=== PATIENT | female | born 1945 | race Caucasian/White ===

== ENCOUNTER → 2018-07-11 10:09 | Outpatient (CLI) | payer MEDICARE, OTHER, SELFPAY ==
--- NOTE | 2018-07-11 10:27 | XR_ITS ---
XR DEXA axial skeleton HISTORY: ITS.REASON: OSTEOPOROSIS ORDERING PHYSICIAN: Kofi Kong PATIENT AGE: 73 years COMPARISON: 03/30/2016 FINDINGS: The BMD measured at the Total Right femoral neck is 0.718 g/cm squared with a T score of -2.3. This is considered Osteopenic according to the World Health Organization criteria. Fracture risk is Moderate. Treatment is advised. The L1-L4 density is a T score of -0.9. The L-spine density has decreased by 10% and the hip density has increased by 1% compared to 03/30/2016 IMPRESSION: Osteopenia with moderate fracture risk. Recommend treatment. Suggest follow-up exam June 2020
== END ==
PROVIDERS: Family Provider Internal Medicine; PCP Internal Medicine; Visit Provider Internal Medicine
DX: M81.0 Age-related osteoporosis without current pathological fracture (principal)
CPT/HCPCS: 77080

== ENCOUNTER → 2019-11-06 10:09 | Outpatient (CLI) | payer MEDICARE, OTHER, SELFPAY ==
--- NOTE | 2019-11-06 10:17 | XR_ITS ---
PROCEDURE: XR SHOULDER RT MIN 2V CLINICAL INDICATION: RT SHOULDER PAIN COMPARISON: No exams were available for comparison FINDINGS: There are moderate osteoarthritic changes of the glenohumeral joint with bony spurring of the inferior aspect of the humeral head. Minor osteoarthritic changes are present at the acromioclavicular joint. IMPRESSION: Osteoarthritic change Dictated by: Mo Meyer MD 11/06/2019 11:18 Electronically signed by Mo Meyer MD in [place] 11/06/2019 11:18
== END ==
PROVIDERS: PCP Internal Medicine; Visit Provider Internal Medicine
DX: M25.511 Pain in right shoulder (principal)
CPT/HCPCS: 73030

== ENCOUNTER → 2021-09-12 13:00 | Outpatient (CLI) | payer MEDICARE, OTHER, SELFPAY ==
[2021-09-12 13:55] LABS: Basophils # 0.2 K/mm3 (0-0.2); Basophils % 1.6 % (0.1-2.0); Eosinophils # 0.2 K/mm3 (0.0-0.4); Eosinophils % 2.2 % (0.1-12.0); Hematocrit 37.2 % (37.0-47.0); Lymphocytes % 20.3 % (10-50); Mean Corpuscular HGB Conc 32.3 g/dL (31.8-35.4); Mean Corpuscular Hemoglobin 26.3 pg (27.0-31.2); Mean Corpuscular Volume 81.4 fl (81-99); Mean Platelet Volume 9.6 fl (7.4-10.4); Monocytes # 0.4 K/mm3 (0.1-1.0); Monocytes % 4.3 % (1.7-9.3); Neutrophils # 7.2 K/mm3 (1.8-7.8); Neutrophils % 71.6 % (37.0-80.0); Platelet Count 287 K/mm3 (142-424); Red Blood Count 4.58 M/mm3 (4.20-5.40); Red Cell Distribution Width 14.1 % (11.5-17.5); White Blood Count 10.1 K/mm3 (4.8-10.8)
[2021-09-12 15:07] LABS: Alanine Aminotransferase 12 U/L (12-78); Albumin Level 4.2 g/dl (3.5-5.0); Albumin/Globulin Ratio 1.8 (1.1-1.8); Alkaline Phosphatase 86 U/L (38-126); Anion Gap 12.3 mEq/L (5-15); Aspartate Amino Transferase 28 U/L (14-36); Bilirubin,Total 0.7 mg/dl (0.2-1.3); Blood Urea Nitrogen 15 mg/dl (7-17); Calcium 9.4 mg/dl (8.4-10.2); Carbon Dioxide 33 mmol/L (22.0-30.0); Chloride 98 mmol/L (98-107); Chol/HDL Ratio 3.7 (1-3.5); Cholesterol 130 mg/dl (140-200); Estimated Glomerular Filt Rate 61 ml/min (>60); GFR (African American) 74 ML/MIN (>60); Globulin 2.3 g/dL (1.3-3.2); Glucose 106 mg/dl (74-100); HDL Cholesterol 35 mg/dl (40-60); Potassium 4.3 mmoL/L (3.5-5.1); Sodium 139 mmol/L (136-145); Total Protein,Serum 6.5 g/dl (6.3-8.2); Triglycerides 184 mg/dl (30-150); VLDL Cholesterol 37 mg/dL (0-40)
[2021-09-12 15:18] LABS: Direct LDL Cholesterol 49.17 mg/dL (100-129)
[2021-09-12 15:23] LABS: Hemoglobin A1C 6.8 % (4.0-6.0)
== END ==
PROVIDERS: Visit Provider Internal Medicine
DX: I25.10 Atherosclerotic heart disease of native coronary artery without angina pectoris (principal); I10 Essential (primary) hypertension; E11.59 Type 2 diabetes mellitus with other circulatory complications; E78.5 Hyperlipidemia, unspecified; Z95.1 Presence of aortocoronary bypass graft; Z79.84 Long term (current) use of oral hypoglycemic drugs
CPT/HCPCS: 80053; 80061; 82043; 83036; 85025

== ENCOUNTER → 2022-03-27 11:10 | Outpatient (CLI) | payer MEDICARE, OTHER, SELFPAY ==
[2022-03-27 13:51] LABS: Hemoglobin A1C 7.1 % (4.0-6.0)
[2022-03-27 14:18] LABS: Alanine Aminotransferase 17 U/L (12-78); Albumin Level 4.1 g/dl (3.5-5.0); Albumin/Globulin Ratio 1.7 (1.1-1.8); Alkaline Phosphatase 87 U/L (38-126); Anion Gap 10.6 mEq/L (5-15); Aspartate Amino Transferase 27 U/L (14-36); Bilirubin,Total 0.5 mg/dl (0.2-1.3); Blood Urea Nitrogen 19 mg/dl (7-17); Calcium 9.5 mg/dl (8.4-10.2); Carbon Dioxide 33 mmol/L (22.0-30.0); Chloride 102 mmol/L (98-107); Chol/HDL Ratio 3.9 (1-3.5); Cholesterol 161 mg/dl (140-200); Estimated Glomerular Filt Rate 70 ml/min (>60); GFR (African American) 84 ML/MIN (>60); Globulin 2.4 g/dL (1.3-3.2); Glucose 116 mg/dl (74-100); HDL Cholesterol 41 mg/dl (40-60); Potassium 4.6 mmoL/L (3.5-5.1); Sodium 141 mmol/L (136-145); Total Protein,Serum 6.5 g/dl (6.3-8.2); Triglycerides 219 mg/dl (30-150); VLDL Cholesterol 44 mg/dL (0-40)
[2022-03-27 14:29] LABS: Direct LDL Cholesterol 52.22 mg/dL (100-129)
== END ==
PROVIDERS: PCP Internal Medicine; Visit Provider Internal Medicine
DX: E11.59 Type 2 diabetes mellitus with other circulatory complications (principal); I10 Essential (primary) hypertension; E78.5 Hyperlipidemia, unspecified; M81.0 Age-related osteoporosis without current pathological fracture; Z95.1 Presence of aortocoronary bypass graft; Z79.84 Long term (current) use of oral hypoglycemic drugs
CPT/HCPCS: 80053; 80061; 83036

== ENCOUNTER → 2022-10-08 12:19 | Outpatient (CLI) | payer MEDICARE, OTHER, SELFPAY ==
[2022-10-08 13:48] LABS: Basophils # 0.1 K/mm3 (0-0.2); Basophils % 0.9 % (0.1-2.0); Eosinophils # 0.2 K/mm3 (0.0-0.4); Eosinophils % 2.5 % (0.1-12.0); Hematocrit 37.3 % (37.0-47.0); Hemoglobin 12.6 g/dL (12.2-16.2); Lymphocytes # 2.1 K/mm3 (0.7-4.5); Lymphocytes % 22.2 % (10-50); Mean Corpuscular HGB Conc 33.7 g/dL (31.8-35.4); Mean Corpuscular Volume 77.2 fl (81-99); Mean Platelet Volume 9.8 fl (7.4-10.4); Monocytes # 0.4 K/mm3 (0.1-1.0); Monocytes % 4.7 % (1.7-9.3); Neutrophils # 6.6 K/mm3 (1.8-7.8); Neutrophils % 69.7 % (37.0-80.0); Platelet Count 327 K/mm3 (142-424); Red Blood Count 4.84 M/mm3 (4.20-5.40); Red Cell Distribution Width 13.6 % (11.5-17.5); White Blood Count 9.5 K/mm3 (4.8-10.8)
[2022-10-08 14:07] LABS: Hemoglobin A1C 7.7 % (4.0-6.0)
[2022-10-08 15:09] LABS: Microalbumin/Creatinine Ratio 5.9
[2022-10-08 15:15] LABS: Creatinine,Urine Random 164 mg/dL (Not Estab.)
[2022-10-08 16:13] LABS: Alanine Aminotransferase 25 U/L (12-78); Albumin Level 4.3 g/dl (3.5-5.0); Albumin/Globulin Ratio 1.8 (1.1-1.8); Alkaline Phosphatase 139 U/L (38-126); Anion Gap 15.4 mEq/L (5-15); Aspartate Amino Transferase 26 U/L (14-36); Bilirubin,Total 0.5 mg/dl (0.2-1.3); Blood Urea Nitrogen 20 mg/dl (7-17); Calcium 9.8 mg/dl (8.4-10.2); Carbon Dioxide 29 mmol/L (22.0-30.0); Chloride 100 mmol/L (98-107); Chol/HDL Ratio 3.8 (1-3.5); Cholesterol 138 mg/dl (140-200); Estimated Glomerular Filt Rate 70 ml/min (>60); GFR (African American) 84 ML/MIN (>60); Globulin 2.4 g/dL (1.3-3.2); Glucose 153 mg/dl (74-100); HDL Cholesterol 36 mg/dl (40-60); Potassium 4.4 mmoL/L (3.5-5.1); Sodium 140 mmol/L (136-145); Total Protein,Serum 6.7 g/dl (6.3-8.2); Triglycerides 207 mg/dl (30-150); VLDL Cholesterol 41 mg/dL (0-40)
[2022-10-08 16:24] LABS: Direct LDL Cholesterol 51.43 mg/dL (100-129)
== END ==
PROVIDERS: PCP Internal Medicine; Visit Provider Internal Medicine
DX: I25.10 Atherosclerotic heart disease of native coronary artery without angina pectoris (principal); I10 Essential (primary) hypertension; E11.59 Type 2 diabetes mellitus with other circulatory complications; E78.5 Hyperlipidemia, unspecified; Z79.84 Long term (current) use of oral hypoglycemic drugs
CPT/HCPCS: 80053; 80061; 82043; 82570; 83036; 85025

== ENCOUNTER → 2023-04-10 12:49 | Outpatient (CLI) | payer MEDICARE, OTHER, SELFPAY ==
[2023-04-10 13:52] LABS: Alanine Aminotransferase 21 U/L (12-78); Albumin Level 4.1 g/dl (3.5-5.0); Albumin/Globulin Ratio 1.6 (1.1-1.8); Alkaline Phosphatase 91 U/L (38-126); Anion Gap 14.3 mEq/L (5-15); Aspartate Amino Transferase 30 U/L (14-36); Bilirubin,Total 0.9 mg/dl (0.2-1.3); Blood Urea Nitrogen 19 mg/dl (7-17); Calcium 9.3 mg/dl (8.4-10.2); Carbon Dioxide 30 mmol/L (22.0-30.0); Chloride 101 mmol/L (98-107); Chol/HDL Ratio 3.7 (1-3.5); Cholesterol 172 mg/dl (140-200); Estimated Glomerular Filt Rate 69 ml/min (>60); GFR (African American) 84 ML/MIN (>60); Globulin 2.5 g/dL (1.3-3.2); Glucose 103 mg/dl (74-100); HDL Cholesterol 46 mg/dl (40-60); Potassium 4.3 mmoL/L (3.5-5.1); Sodium 141 mmol/L (136-145); Total Protein,Serum 6.6 g/dl (6.3-8.2); Triglycerides 242 mg/dl (30-150); VLDL Cholesterol 48 mg/dL (0-40)
[2023-04-10 14:03] LABS: Direct LDL Cholesterol 62.74 mg/dL (100-129)
[2023-04-10 14:06] LABS: Hemoglobin A1C 7.4 % (4.0-6.0)
== END ==
PROVIDERS: PCP Internal Medicine; Visit Provider Internal Medicine
DX: E11.59 Type 2 diabetes mellitus with other circulatory complications (principal); I25.10 Atherosclerotic heart disease of native coronary artery without angina pectoris; I10 Essential (primary) hypertension; E78.5 Hyperlipidemia, unspecified
CPT/HCPCS: 80053; 80061; 83036

== ENCOUNTER 2023-07-22 17:22 | Emergency (ER) | payer MEDICARE, OTHER, SELFPAY ==
[2023-07-22 17:45] VITALS: BP 154/67; PULSE 98; RESP 18; TEMP 36.7; O2SAT 100; BMI 20.2
[2023-07-22 18:01] VITALS: BMI 20.2
[2023-07-22 18:06] LABS: Coronavirus 19, PCR Not Detected (NotDetected); Influenza A, PCR Not Detected (NotDetected); Influenza B, PCR Not Detected (NotDetected); Microscopic, Urine URINE MICROSCOPIC (MICROSCOPIC)
[2023-07-22 18:10] LABS: Basophils # 0.1 K/mm3 (0-0.2); Basophils % 0.4 % (0.1-2.0); Chloride 96 mmol/L (98-107); Eosinophils % 0.4 % (0.1-12.0); Hematocrit 45.7 % (37.0-47.0); Hemoglobin 14.6 g/dL (12.2-16.2); Lymphocytes % 8.2 % (10-50); Mean Corpuscular Hemoglobin 25.6 pg (27.0-31.2); Mean Corpuscular Volume 79.9 fl (81-99); Mean Platelet Volume 9.1 fl (7.4-10.4); Monocytes # 0.4 K/mm3 (0.1-1.0); Monocytes % 3.6 % (1.7-9.3); Neutrophils # 10.6 K/mm3 (1.8-7.8); Neutrophils % 87.4 % (37.0-80.0); Platelet Count 331 K/mm3 (142-424); Red Blood Count 5.71 M/mm3 (4.20-5.40); Red Cell Distribution Width 13.6 % (11.5-17.5); White Blood Count 12.1 K/mm3 (4.8-10.8)
[2023-07-22 18:11] LABS: Appearance,Urine CLEAR (Clear); Bilirubin,Urine Negative (Negative); Blood, Urine Negative (Negative); Color,Urine YELLOW (Yellow); Glucose,Urine (UA) Negative (Negative); Ketones,Urine 2+ (Negative); Leukocyte Esterase,Urine Negative (Negative); Nitrate,Urine Negative (Negative); PH,Urine 5.5 (5.0-8.5); Potassium 3.4 mmoL/L (3.5-5.1); Protein,Urine 1+ (Negative); Sodium 139 mmol/L (136-145); Specific Gravity, Urine >= 1.030 (1.005-1.030); Urobilinogen,Urine 0.2 EU/dl (0.2)
[2023-07-22 18:13] LABS: Alanine Aminotransferase 35 U/L (12-78); Alkaline Phosphatase 104 U/L (38-126); Anion Gap 18.4 mEq/L (5-15); Aspartate Amino Transferase 35 U/L (14-36); Bilirubin,Total 0.8 mg/dl (0.2-1.3); Blood Urea Nitrogen 20 mg/dl (7-17); Carbon Dioxide 28 mmol/L (22.0-30.0); Creatinine Clearance Estimated 39 mL/min (50-200); Estimated Glomerular Filt Rate 61 ml/min (>60); GFR (African American) 73 ML/MIN (>60)
[2023-07-22 18:14] LABS: Albumin Level 4.4 g/dl (3.5-5.0); Albumin/Globulin Ratio 1.2 (1.1-1.8); Calcium 9.5 mg/dl (8.4-10.2); Globulin 3.8 g/dL (1.3-3.2); Glucose 186 mg/dl (74-100); Total Protein,Serum 8.2 g/dl (6.3-8.2)
[2023-07-22 18:16] LABS: MANUAL DIFFERENTIAL MANUAL DIFFERENTIAL (MANUAL DIFF)
[2023-07-22 18:24] LABS: Bacteria,Urine Trace /lpf; RBC,Urine Occasional #/hpf (0-3)
--- NOTE | 2023-07-22 18:41 | PC.NURSE ---
LAB AND RESP AWARE OF NEW ORDERS
--- NOTE | 2023-07-22 18:41 | HMH.EDGENADL ---
Discharge Plan Disposition Patient Disposition: Home, Self-Care Condition: Good Prescriptions Prescriptions: New doxycycline hyclate 100 mg capsule 100 mg PO BID 14 Days Qty: 28 0RF ondansetron 4 mg tablet,disintegrating 4 mg PO Q8H PRN (Reason: nausea and vomiting) 4 Days Qty: 12 0RF No Action metoprolol tartrate 50 mg tablet 50 mg PO BID simvastatin 80 mg tablet 80 mg PO DAILY losartan 100 mg tablet 100 mg PO DAILY glipizide 5 mg tablet extended release 24hr 5 mg PO DAILY hydrochlorothiazide 12.5 mg capsule 12.5 mg PO DAILY tramadol 50 mg tablet 50 mg PO Q6H PRN aspirin 325 mg tablet 325 mg PO DAILY alendronate 70 mg tablet 70 mg PO QWEEK calcium carbonate [Calcium 600] 600 mg calcium (1,500 mg) tablet 600 mg PO DAILY omeprazole 20 mg capsule,delayed release(DR/EC) 20 mg PO DAILY Referrals Follow up/Referrals: Kofi Kong MD [Primary Care Provider] - See instructions Activity Restrictions/Add. Instructions Additional Instructions/Restrictions: You were evaluated in the emergency department today. At this time, you are dehydrated and have a pneumonia. 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 Ensure that you are hydrating and drinking plenty of fluids at home. If you are not able to eat and drink at home, please come back to the emergency department. If you have continued significant vomiting and diarrhea and are having trouble keeping down your antibiotics, return to the emergency department. Please come back for any new or worsening symptoms. Follow-up with your primary care provider over the next 3 days. Clinical Impressions Clinical Impression: Lingular pneumonia, Acute dehydration Instructions Patient Instructions: DI for Pneumonia -- Adult, DI for Diarrhea and Traveler's Diarrhea -- Adult, DI for Nausea -- Adult Discharge ED Provider: Virgen Weiss General Adult HPI General Chief complaint: Nausea/Vomiting/Diarrhea Stated complaint: vomiting, diarrhea Time Seen by Provider: 07/22/23 18:02 Mode of Arrival: Ambulatory Limitations: No Limitations Description of Symptoms (Recalled from ER Triage Doc. by RN): c/o achy all over for 3 days, n/v since last night. History of Present Illness HPI narrative: This patient is a 78-year-old female with a history of hypertension, hyperlipidemia, diabetes, and GERD who states that for the last 3 days she has felt achy all over, and then she started having nausea and vomiting last night. Emesis is nonbloody nonbilious, and diarrhea is nonbloody. She denies any specific abdominal pain associated with this. She has been able to take sips of water, but she is not able to eat because it comes right back up. No dysuria or other concerns right now. Related Data Home Medications Medication Instructions Recorded Confirmed alendronate 70 mg tablet 70 mg PO QWEEK 12/01/19 12/01/19 aspirin 325 mg tablet 325 mg PO DAILY 12/01/19 12/01/19 calcium carbonate 600 mg calcium 600 mg PO DAILY 12/01/19 12/01/19 (1,500 mg) tablet (Calcium) glipizide 5 mg tablet, extended 5 mg PO DAILY 12/01/19 12/01/19 release 24 hr hydrochlorothiazide 12.5 mg capsule 12.5 mg PO DAILY 12/01/19 12/01/19 losartan 100 mg tablet 100 mg PO DAILY 12/01/19 12/01/19 metoprolol tartrate 50 mg tablet 50 mg PO BID 12/01/19 12/01/19 omeprazole 20 mg capsule,delayed 20 mg PO DAILY 12/01/19 12/01/19 release simvastatin 80 mg tablet 80 mg PO DAILY 12/01/19 12/01/19 tramadol 50 mg tablet 50 mg PO Q6H PRN 12/01/19 12/01/19 Previous Rx's Medication Instructions Recorded doxycycline hyclate 100 mg capsule 100 mg PO BID 14 days #28 caps 07/22/23 ondansetron 4 mg disintegrating 4 mg PO Q8H PRN nausea and 07/22/23 tablet vomiting 4 days #12 tabs Allergies Allergy/AdvReac Type Severity Reaction Status Date / Time Diazepam Allergy Unknown Uncoded 12/01/19
--- NOTE | 2023-07-22 18:43 | XR_ITS ---
PROCEDURE INFORMATION: Exam: XR Chest Exam date and time: 07/22/2023 7:31 PM Age: 78 years old Clinical indication: Other: Body aches and chills; Prior surgery; Surgery date: 6+ months; Surgery type: Open heart; Additional info: Body aches, chills TECHNIQUE: Imaging protocol: Radiologic exam of the chest. Views: 1 view. COMPARISON: CR XR SHOULDER RT MIN 2V 11/06/2019 10:18 AM FINDINGS: Lungs: There is moderate left lower lobe consolidative atelectasis. Right lung appears clear. Pleural spaces: Unremarkable. No pleural effusion. No pneumothorax. Heart/Mediastinum: Unremarkable. No cardiomegaly. Bones/joints: Significant partially visualized lumbar scoliosis. [id number] multilevel degenerative disc changes. Old post sternotomy changes. IMPRESSION: Moderate left lower lobe consolidative atelectasis concerning for pneumonia.
--- NOTE | 2023-07-22 18:43 | CT_ITS ---
PROCEDURE INFORMATION: Exam: CT Abdomen And Pelvis With Contrast Exam date and time: 07/22/2023 7:36 PM Age: 78 years old Clinical indication: Other: N/v/d dehydration TECHNIQUE: Imaging protocol: Computed tomography of the abdomen and pelvis with contrast. Radiation optimization: All CT scans at this facility use at least one of these dose optimization techniques: automated exposure control; mA and/or kV adjustment per patient size (includes targeted exams where dose is matched to clinical indication); or iterative reconstruction. Contrast material: ISOVUE; Contrast volume: 75 ml; Contrast route: IV; REPORTING DATA: Count of CT and Cardiac NM exams in prior 12 months: This patient has received 0 known CTs and 0 known cardiac nuclear medicine studies in the 12 months prior to the current study. COMPARISON: CR XR CHEST PORTABLE 07/22/2023 7:31 PM FINDINGS: Lungs: There is dense focal consolidation in the visualized portion of the lingula. Lower lungs are otherwise clear. Liver: Normal. No mass. Gallbladder and bile ducts: Normal. No calcified stones. No ductal dilation. Pancreas: Normal. No ductal dilation. Spleen: Normal. No splenomegaly. Adrenal glands: Normal. No mass. Kidneys and ureters: Normal. No hydronephrosis. Stomach and bowel: Moderate-sized sliding-type hiatal hernia containing the proximal stomach. Moderate sigmoid diverticulosis. No bowel wall thickening or evidence of bowel obstruction. Appendix: No evidence of appendicitis. Intraperitoneal space: Unremarkable. No free air. No significant fluid collection. Vasculature: Moderate atherosclerotic calcification throughout the aorta and iliac arteries. No evidence of aneurysm or dissection. Lymph nodes: Unremarkable. No enlarged lymph nodes. Urinary bladder: Unremarkable as visualized. Reproductive: Unremarkable as visualized. Bones/joints: Moderate levoscoliosis of the lumbar spine. [id number] multilevel degenerative disc changes and facet arthropathy with grade 1 anterolisthesis of L5. Degenerative disc changes most severe at the lumbosacral junction. Soft tissues: Unremarkable. IMPRESSION: 1. Lingular consolidation concerning for pneumonia 2. Moderate-sized hiatal hernia containing the proximal stomach 3. Chronic osseous and atherosclerotic changes as described.
[2023-07-22 18:48] LABS: VBG Base Excess -0.7 mmol/L (-2.4-2.3); VBG HCO3 24.3 mmol/L (23-30); VBG Oxygen Saturation 52.4 % (50-70); VBG PCO2 40.9 mmol/L (35-51); VBG PH 7.39 mmol/L (7.31-7.41); VBG PO2 25.5 mmol/L (28-40); VBG Total CO2 25.5 mmol/L (23-27)
[2023-07-22 18:52] LABS: Acetone, Serum (Rapid) None Detected (None Detect)
[2023-07-22 19:10] LABS: Lymphocytes % 11 % (10-50); Monocytes % 4 % (2-9); Neutrophils % 72 % (42-76); Platelet Estimate Normal; RBC Morphology Normal; Total Cells Counted 100
--- NOTE | 2023-07-22 19:13 | ECG_ITS ---
APPROVED REPORT Exam: Resting ECG HR:98 bpm ECG Measurements Heart Rate 98 AXES ND 181 P 55 QRSd 81 QRS 81 QT 375 T 81 QTc 430 Conclusion SINUS RHYTHM WITH FREQUENT VENTRICULAR PREMATURE COMPLEXES NONSPECIFIC T-WAVE ABNORMALITY ABNORMAL RHYTHM ECG UNCONFIRMED REPORT Electronically signed by : Robles Gill MD 07/24/2023 08:51:23
[2023-07-22 21:08] VITALS: BP 94/52; PULSE 54; RESP 18; TEMP 37.1; O2SAT 94
== END 2023-07-22 21:10 | disposition home or self-care (01) ==
PROVIDERS: Emergency Provider Emergency Medicine; PCP Internal Medicine
DX: J18.9 Pneumonia, unspecified organism (principal); E86.0 Dehydration; R11.2 Nausea with vomiting, unspecified; I10 Essential (primary) hypertension; E78.5 Hyperlipidemia, unspecified; E11.9 Type 2 diabetes mellitus without complications; K21.9 Gastro-esophageal reflux disease without esophagitis; I49.3 Ventricular premature depolarization
CPT/HCPCS: 71045; 74177; 80053; 81001; 82009; 82803; 85007; 85025; 87636; 93005; 96361; 96374; 96375; 99285; J0131; J2405; Q9967

== ENCOUNTER 2023-07-30 10:01 | Inpatient (IN) | payer MEDICARE, OTHER, SELFPAY ==
[2023-07-30] VITALS (11 sets, daily range): BP systolic 100–172; BP diastolic 61–95; PULSE 57–75; RESP 12–22; TEMP 36.4; O2SAT 86–99; BMI 19.5; BMI 19.2
--- NOTE | 2023-07-30 10:24 | CT_ITS ---
FINAL REPORT CLINICAL HISTORY: worsening sx, recent PNA dx FINDINGS: Thin section axial CT images of the chest were obtained with contrast. 3D reformatted images were also obtained. This study was performed with techniques to keep radiation doses as low as reasonably achievable (ALARA). Individualized dose reduction techniques using automated exposure control or adjustment of mA and/or kV according to the patient's size were employed. The patient is status post median sternotomy. Cardiomegaly is noted. There is a moderate hiatal hernia. There is no evidence of pulmonary embolism. There is no evidence of thoracic aortic aneurysm or dissection. There is no evidence of mediastinal or hilar mass or adenopathy. There are patchy bilateral pulmonary groundglass opacities which may represent edema or pneumonia. There are small pleural effusions, left greater than right. Bibasilar atelectasis is noted. Limited images of the upper abdomen are unremarkable. IMPRESSION: No evidence of pulmonary embolism. Patchy bilateral groundglass opacities may represent edema or pneumonia with small pleural effusions. Reviewed, Interpreted and Dictated by Curry Branch III, MD Transcribed by Lin Adler Authenticated and [facility]
--- NOTE | 2023-07-30 10:24 | HMH.EDGENADL ---
Discharge Plan Disposition Patient Disposition: Admitted Prescriptions Prescriptions: No Action metoprolol tartrate 50 mg tablet 50 mg PO BID simvastatin 80 mg tablet 80 mg PO DAILY losartan 100 mg tablet 100 mg PO DAILY glipizide 5 mg tablet extended release 24hr 5 mg PO DAILY hydrochlorothiazide 12.5 mg capsule 12.5 mg PO DAILY tramadol 50 mg tablet 50 mg PO Q6H PRN aspirin 325 mg tablet 325 mg PO DAILY alendronate 70 mg tablet 70 mg PO QWEEK calcium carbonate [Calcium 600] 600 mg calcium (1,500 mg) tablet 600 mg PO DAILY omeprazole 20 mg capsule,delayed release(DR/EC) 20 mg PO DAILY doxycycline hyclate 100 mg capsule 100 mg PO BID 14 Days Qty: 28 0RF ondansetron 4 mg tablet,disintegrating 4 mg PO Q8H PRN (Reason: nausea and vomiting) 4 Days Qty: 12 0RF Referrals Follow up/Referrals: Kofi Kong MD [Primary Care Provider] - See instructions Clinical Impressions Clinical Impression: Lingular pneumonia, Acute dehydration, Weakness, Adult failure to thrive, Failure of outpatient treatment, Hypokalemia, Hypomagnesemia Discharge ED Provider: Leonor Argueta General Adult HPI General Chief complaint: Weakness Stated complaint: weakness, no appetite Time Seen by Provider: 07/30/23 10:14 Mode of Arrival: Wheelchair Source of Information: Patient Limitations: No Limitations Description of Symptoms (Recalled from ER Triage Doc. by RN): Patient was seen in this ER on Saturday for weakness. Per patient they wanted to admit her but she decided not to stay and went home. Patient was seen at Dr. Kong' office this morning for the same symptoms (weakness and unable to eat) and they requested she come back to the ER for possible dehydration. History of Present Illness HPI narrative: Patient is a 78-year-old female with no significant past medical problems from her history who presents today with worsening symptoms after recent diagnosis of pneumonia. She states she has had 2 weeks of cough body aches chills and came to the emergency department on Saturday and was diagnosed with lingular pneumonia and started on doxycycline and has not had any significant improvement in her symptoms. She states that just beyond 2 weeks ago that she was in her normal state of health and was even able to play with her grandkids under the table. She denies any chest pain she denies any urinary symptoms any nausea vomiting diarrhea or any other symptoms. She went to Dr. Kong's office today and he sent her to the emergency department telling her she needed to be admitted. Related Data Home Medications Medication Instructions Recorded Confirmed alendronate 70 mg tablet 70 mg PO QWEEK 12/01/19 12/01/19 aspirin 325 mg tablet 325 mg PO DAILY 12/01/19 12/01/19 calcium carbonate 600 mg calcium 600 mg PO DAILY 12/01/19 12/01/19 (1,500 mg) tablet (Calcium) glipizide 5 mg tablet, extended 5 mg PO DAILY 12/01/19 12/01/19 release 24 hr hydrochlorothiazide 12.5 mg capsule 12.5 mg PO DAILY 12/01/19 12/01/19 losartan 100 mg tablet 100 mg PO DAILY 12/01/19 12/01/19 metoprolol tartrate 50 mg tablet 50 mg PO BID 12/01/19 12/01/19 omeprazole 20 mg capsule,delayed 20 mg PO DAILY 12/01/19 12/01/19 release simvastatin 80 mg tablet 80 mg PO DAILY 12/01/19 12/01/19 tramadol 50 mg tablet 50 mg PO Q6H PRN 12/01/19 12/01/19 Previous Rx's Medication Instructions Recorded doxycycline hyclate 100 mg capsule 100 mg PO BID 14 days #28 caps 07/22/23 ondansetron 4 mg disintegrating 4 mg PO Q8H PRN nausea and 07/22/23 tablet vomiting 4 days #12 tabs Allergies Allergy/AdvReac Type Severity Reaction Status Date / Time Diazepam Allergy Unknown Uncoded 12/01/19 09:05 [facility] Disclaimer: The information contained in this section may have been updated after the patient was seen, as this information can be updated by other users. Social History (Reviewed 07/22/23 @ 18:43 by Virgen Espinosa
[2023-07-30 10:28] LABS: VBG Base Excess 8.9 mmol/L (-2.4-2.3); VBG HCO3 33.1 mmol/L (23-30); VBG Oxygen Saturation 79.6 % (50-70); VBG PH 7.44 mmol/L (7.31-7.41); VBG PO2 41.4 mmol/L (28-40); VBG Total CO2 34.6 mmol/L (23-27)
[2023-07-30 10:32] LABS: VBG PCO2 50.1 mmol/L (35-51)
--- NOTE | 2023-07-30 10:32 | ECG_ITS ---
APPROVED REPORT Exam: Resting ECG HR:63 bpm ECG Measurements Heart Rate 63 AXES NV 210 P 24 QRSd 86 QRS 36 QT 397 T 13 QTc 403 Conclusion SINUS RHYTHM WITH FIRST DEGREE AV BLOCK POSSIBLE ANTERIOR MYOCARDIAL INFARCTION , OF INDETERMINATE AGE [30 ms Q WAVE IN V3/V4, OR R < 0.2 mV IN V4] ABNORMAL ECG UNCONFIRMED REPORT Electronically signed by : Robles Gill MD 08/03/2023 11:11:45
[2023-07-30 10:34] LABS: Basophils % 0.5 % (0.1-2.0); Eosinophils # 0.1 K/mm3 (0.0-0.4); Eosinophils % 1.4 % (0.1-12.0); Hematocrit 40.7 % (37.0-47.0); Hemoglobin 12.9 g/dL (12.2-16.2); Lymphocytes # 1.2 K/mm3 (0.7-4.5); Mean Corpuscular HGB Conc 31.6 g/dL (31.8-35.4); Mean Corpuscular Hemoglobin 25.4 pg (27.0-31.2); Mean Corpuscular Volume 80.4 fl (81-99); Mean Platelet Volume 7.9 fl (7.4-10.4); Monocytes # 0.2 K/mm3 (0.1-1.0); Monocytes % 2.6 % (1.7-9.3); Neutrophils # 5.7 K/mm3 (1.8-7.8); Neutrophils % 78.4 % (37.0-80.0); Platelet Count 339 K/mm3 (142-424); Red Blood Count 5.06 M/mm3 (4.20-5.40); Red Cell Distribution Width 13.1 % (11.5-17.5); White Blood Count 7.3 K/mm3 (4.8-10.8)
[2023-07-30 10:43] LABS: Alanine Aminotransferase 39 U/L (12-78); Albumin Level 3.4 g/dl (3.5-5.0); Albumin/Globulin Ratio 1.1 (1.1-1.8); Alkaline Phosphatase 125 U/L (38-126); Anion Gap 11.1 mEq/L (5-15); Aspartate Amino Transferase 38 U/L (14-36); Bilirubin,Total 0.5 mg/dl (0.2-1.3); Blood Urea Nitrogen 23 mg/dl (7-17); Calcium 9.3 mg/dl (8.4-10.2); Carbon Dioxide 37 mmol/L (22.0-30.0); Chloride 87 mmol/L (98-107); Creatinine Clearance Estimated 38 mL/min (50-200); Estimated Glomerular Filt Rate 61 ml/min (>60); GFR (African American) 73 ML/MIN (>60); Globulin 3.2 g/dL (1.3-3.2); Glucose 216 mg/dl (74-100); Magnesium 1.5 mg/dl (1.6-2.3); Potassium 3.1 mmoL/L (3.5-5.1); Sodium 132 mmol/L (136-145); Total Protein,Serum 6.6 g/dl (6.3-8.2)
--- NOTE | 2023-07-30 10:58 | PC.NURSE ---
pt received a warm blanket turn lights off no other needs at this time, call light and at bs
[2023-07-30 11:03] LABS: Troponin I < 0.01 ng/ml (0.00-0.034)
[2023-07-30 11:14] LABS: Thyroid Stimulating Hormone 5.13 uIU/mL (0.465-4.68)
--- NOTE | 2023-07-30 11:23 | PC.NURSE ---
pt arrived back to room from ct
[2023-07-30 11:47] LABS: Lactic Acid 2.1 mmol/L (0.7-2.1)
[2023-07-30 12:45] LABS: Microscopic, Urine URINE MICROSCOPIC (MICROSCOPIC)
--- NOTE | 2023-07-30 12:46 | PC.NURSE ---
called care management for bed assignment
[2023-07-30 12:51] LABS: Appearance,Urine CLEAR (Clear); Bilirubin,Urine Negative (Negative); Blood, Urine Negative (Negative); Color,Urine YELLOW (Yellow); Glucose,Urine (UA) Negative (Negative); Ketones,Urine Negative (Negative); Leukocyte Esterase,Urine Negative (Negative); Nitrate,Urine Negative (Negative); PH,Urine 6.5 (5.0-8.5); Protein,Urine Negative (Negative); Specific Gravity, Urine <= 1.005 (1.005-1.030); Urobilinogen,Urine 0.2 EU/dl (0.2)
--- NOTE | 2023-07-30 12:52 | PC.NURSE ---
pt and was given a lunch tray
[2023-07-30 13:06] LABS: Bacteria,Urine 1+ /lpf; RBC,Urine Occasional #/hpf (0-3); WBC,Urine Occasional #/hpf (0-3)
--- NOTE | 2023-07-30 13:10 | CA_ITS ---
APPROVED REPORT EXAM: Comprehensive 2D, Doppler, and color-flow Echocardiogram Collection Support Specialist: THAI Dotson, RVS Ht: 5 ft 4 in Wt: 114lbs BSA: 1.54 BP: 149/70 mmHg Indications: CAD hx- CABGx5 2007, weakness, murmurs, HTN, HLD, pneumonia, hypokalemia Echo Enhancing Agent Indication: Rule Out Septal Defect Agent(s) / Amount(s) Used: Agitated Saline 20 cc 2D Dimensions Aortic Root 2.35 cm LA Volume 65.60 mL Left Atrium 2.91 cm LA Volume Index 41.50 mL/m2 (M/F) 16-34 LVOT 1.89 cm (M/F) 1.5-2.5 M-Mode Dimensions RVDd 3.52 cm (0.9-2.6) LA Diam 4.00 cm (1.9-4.0) LVDd 4.01 cm (3.5-5.7) Ao Diam 2.50 cm (2.0-3.7) LVDs 2.73 cm (3.5-5.7) IVSd 0.93 cm (0.6-1.1) PWd 0.84 cm (0.6-1.1) EF (Teich) 60.50% EPSs 0.11 cm FS 31.90% EDV (Teich) 70.40 mL TAPSE 1.45 (<1.7) ESV (Teich) 27.80 mL LV Diastology E Decel Time 203.00 (160-240 msec) E/A Ratio 1.10 MED E' 9.80 (< 7 cm/sec) MED A' 11.30 cm/s E'/MED E' Ratio 8.41 (>14) LAT E' 13.00 (<10 cm/sec) LAT A' 8.90 cm/s E/LAT E' Ratio 6.34 (>14) Aortic Valve LVOT Max 81.00 (70-110 cm/s) LVOT VTI 20.03 cm AoV Peak Shine. 127.00 (50-130 cm/s) AI PHT 556.00 ms AO Peak GR. 6.40 mmHg AO Mean GR. 3.30 (<5 mmHg) AO VTI 27.71 (18-25 cm) SHANELLE (VTI) 2.03 (2.5-4.5 cm2) Mitral Valve MV A Velocity 75.00 (40-130 cm/s) E/A Ratio 1.10 MV Decel. Time 203.00 (160-240 ms) Pulmonary Valve PV Peak Velocity 91.00 (50-150 cm/s) NJ End VMAX 138.00 cm/s Tricuspid Valve TR P. Velocity 306.00 cm/s RAP Estimate 10.00 mmHg RVSP 47.50 mmHg Left Ventricle The left ventricle is normal size. The left ventricular systolic function is normal. The left ventricular ejection fraction is within the normal range. There is normal left ventricular wall thickness. There is normal LV segmental wall motion. The left ventricular diastolic function is normal. LVEF is 55%. Right Ventricle Right ventricle is severely dilated. Right ventricle is mildly hypokinetic. Atria Left atrium is mildly dilated. Right atrium is mildly dilated. There is no Doppler evidence of interatrial shunt. Saline bubble contrast intravenous injection does not demonstrate PFO. Aortic Valve The aortic valve is trileaflet. the aortic valve is mildly thickened. There is no aortic valvular stenosis. Mild aortic regurgitation. Mitral Valve The mitral valve leaflets are mildly thickened. No evidence of mitral valve stenosis. Mild mitral regurgitation. Tricuspid Valve The tricuspid valve leaflets are thin and pliable. Moderate tricuspid regurgitation. RVSP is 38 mmHg + RA pressure. Pulmonic Valve The pulmonary valve is normal in structure. Mild pulmonic regurgitation. Great Vessels The aortic root is normal in size. The ascending aorta is not well visualized. The IVC is not well visualized. Pericardium There is no pericardial effusion. Other Information Study Quality: Adequate Conclusion Normal LV systolic function. Severely dilated RV with mild reduction in RV function. Mild AI, mild MR. Moderate TR. Elevated RVSP 38 mmHg + RA pressure. Saline bubble contrast intravenous injection at rest and with Valsalva does not demonstrate PFO. Electronically signed by : Griselda Mcnamara MD 07/30/2023 20:23:40
--- NOTE | 2023-07-30 13:19 | EXP.HP ---
History of Present Illness *Admission Date: 07/30/23 *Reason for visit:: Chief complaint: Cough and weakness *History of present illness: The patient is a 78-year-old female who returns to [facility] emergency department at the request of her PCP for ongoing cough and weakness. She was recently evaluated in the ED and diagnosed with pneumonia and dismissed on oral antibiotic therapy. She reports tolerating her antibiotic therapy with no adverse events but reports no improvement. She describes recent sick contacts with her grandson who is 4 years old. She has identified subjective fever and chills with associated croupy cough. She denies acute dyspnea at rest or hemoptysis. She reports intermittent productive cough. She denies confusion, falls, nausea, vomiting or diarrhea. She denies retrosternal chest pain or palpitations. She reports a decreased appetite with diminished p.o. intake of food and liquids. She is chronically prescribed a thiazide diuretic. In the ED his sodium 132 potassium 3.1 and magnesium 1.5 were noted. A CTA of the chest identified bilateral groundglass opacities consistent with pneumonia. Her COVID test was negative. [facility] Medical History (Updated 07/30/23 @ 15:11 by Rodríguez Piper MD) Coronary artery disease Diabetes mellitus, type 2 Hypertension Osteoarthritis of right shoulder Surgical History (Updated 07/30/23 @ 14:49 by Yaneth Fierro RN) Hx of CABG Family History (Updated 07/30/23 @ 14:46 by Yaneth Fierro RN) Other No significant family history Social History (Updated 07/30/23 @ 14:47 by Yaneth Fierro RN) Smoking Status: Never smoker alcohol intake: never current occupational status: retired Travel in the last 8 weeks: None Review of Systems Review of Systems Review of systems:: pertinent systems reviewed and negative unless documented below *Cardiovascular Cardiovascular: Denies chest pain, Denies chest pain at rest, Reports dyspnea, Denies dyspnea on exertion, Denies orthopnea and Denies rapid heart rate *Respiratory Respiratory: Reports cough, Reports dyspnea, Denies dyspnea on exertion, Denies hemoptysis and Denies pain with cough *Gastrointestinal Gastrointestinal: Denies loose stools, Denies nausea and Denies vomiting Meds Home Medications and Allergies Home Medications Medication Instructions Recorded Confirmed Type aspirin 325 mg tablet 325 mg PO DAILY [facility] 12/01/19 07/30/23 History glipizide 5 mg tablet, extended 5 mg PO DAILY Diabetes 12/01/19 07/30/23 History release 24 hr hydrochlorothiazide 12.5 mg capsule 12.5 mg PO DAILY Fluid 12/01/19 07/30/23 History losartan 100 mg tablet 100 mg PO DAILY High Blood Pressure 12/01/19 07/30/23 History metoprolol tartrate 50 mg tablet 12.5 mg PO BID High Blood Pressure 12/01/19 07/30/23 History simvastatin 80 mg tablet 80 mg PO HS Cholesterol 12/01/19 07/30/23 History tramadol 50 mg tablet 50 mg PO Q6HP PRN Moderate Pain 12/01/19 07/30/23 History (Scale Score 5-6) doxycycline hyclate 100 mg capsule 100 mg PO BID Infection 07/30/23 07/30/23 History metformin 500 mg tablet,extended 500 mg PO QPMWITHMEAL Diabetes 07/30/23 07/30/23 History release 24 hr ondansetron 4 mg disintegrating 4 mg PO Q8HP PRN nausea and 07/30/23 07/30/23 History tablet vomiting New Prescriptions to Start Prescriptions: Allergies Allergy/AdvReac Type Severity Reaction Status Date / Time diazepam Allergy Unknown Unknown Verified 07/30/23 13:25 allergy reaction Exam Data for Last 24 hours Vital signs and Labs for Last 24 Hours: Temp Pulse Resp BP Pulse Ox O2 Del Method 97.6 F 66 21 129/61 94 L Room Air 07/30/23 10:02 07/30/23 11:30 07/30/23 11:30 07/30/23 11:30 07/30/23 11:30 07/30/23 10:02 Laboratory Results - last 24 hr 07/30/23 10:12: WBC 7.3, RBC 5.06, Hgb 12.9, Hct 40.7, MCV 80.4 L, MCH 25.4 L, MCHC 31.6 L, RDW 13.1, Plt Count 339, MPV 7.9, Neut %
--- NOTE | 2023-07-30 13:37 | HMH.PHAINT1 ---
Pharmacy Intervention Comments: MEDICATION RECONCILIATION COMPLETED ON PATIENT USING EXTERNAL FILL HISTORY FROM PHARMACY. -PARKER MENDOSA, SUSAND
--- NOTE | 2023-07-30 14:00 | PC.NURSE ---
Report called to [facility] on Med Surg.
[2023-07-30 14:07] LABS: Troponin I < 0.01 ng/ml (0.00-0.034)
--- NOTE | 2023-07-30 14:11 | PC.NURSE ---
ECHO BEING DONE AT BS
[2023-07-30 15:04] LABS: Reflex Lactic Add Lactic Reflex
[2023-07-30 15:48] LABS: Lactic Acid Follow Up (RFLX 1) 2.4 mmol/L (0.7-2.1)
[2023-07-30 16:02] LABS: Troponin I < 0.01 ng/ml (0.00-0.034)
--- NOTE | 2023-07-30 16:09 | PC.NURSE ---
A&OX4. TOLERATING RA WELL. HAS HAD NO NEEDS OR C/O THUS FAR, JUST STATES SHE FEELS VERY TIRED. RESTING IN BED, VSS.
[2023-07-30 16:39] LABS: POC Glucose,Bedside 286 (70-110)
[2023-07-30 17:28] LABS: Hemoglobin A1C 8.1 % (4.0-6.0)
[2023-07-30 17:29] LABS: Reflex Lactic (2 hrs) Add Lactic Reflex
[2023-07-30 18:19] LABS: Lactic Acid Follow up (RFLX 2) 2.2 mmol/L (0.7-2.1)
[2023-07-30 20:10] LABS: POC Glucose,Bedside 109 (70-110)
[2023-07-31] VITALS (9 sets, daily range): BP systolic 105–125; BP diastolic 48–65; PULSE 54–65; RESP 16–20; TEMP 36.4–36.9; O2SAT 92–98; BMI 20.1
--- NOTE | 2023-07-31 04:41 | PC.NURSE ---
Pt is alert and oriented x4, Pt remains on RA and has tolerated well, Pt currently on telemetry due to potassium doses this shift. Pt has complained of pain this shift that has been relieved with pain medications. Pt is now resting well, denies pain and other needs at this time.
[2023-07-31 05:38] LABS: POC Glucose,Bedside 141 (70-110)
[2023-07-31 06:33] LABS: Eosinophils # 0.2 K/mm3 (0.0-0.4); Monocytes # 0.2 K/mm3 (0.1-1.0); Red Cell Distribution Width 13.5 % (11.5-17.5)
[2023-07-31 06:34] LABS: Chloride 100 mmol/L (98-107); Sodium 136 mmol/L (136-145)
[2023-07-31 06:35] LABS: Potassium 4.1 mmoL/L (3.5-5.1)
[2023-07-31 06:37] LABS: Blood Urea Nitrogen 16 mg/dl (7-17); Creatinine Clearance Estimated 39 mL/min (50-200); Estimated Glomerular Filt Rate 97 ml/min (>60); GFR (African American) 117 ML/MIN (>60)
[2023-07-31 06:38] LABS: Anion Gap 8.1 mEq/L (5-15); Calcium 7.7 mg/dl (8.4-10.2); Carbon Dioxide 32 mmol/L (22.0-30.0); Glucose 144 mg/dl (74-100); Magnesium 1.8 mg/dl (1.6-2.3)
[2023-07-31 06:49] LABS: Basophils % 0.6 % (0.1-2.0); Eosinophils % 3.3 % (0.1-12.0); Hematocrit 31.2 % (37.0-47.0); Lymphocytes # 1.3 K/mm3 (0.7-4.5); Lymphocytes % 20.6 % (10-50); Mean Corpuscular HGB Conc 34.2 g/dL (31.8-35.4); Mean Corpuscular Hemoglobin 26.7 pg (27.0-31.2); Mean Platelet Volume 8.2 fl (7.4-10.4); Monocytes % 3.2 % (1.7-9.3); Neutrophils # 4.7 K/mm3 (1.8-7.8); Neutrophils % 72.2 % (37.0-80.0); Platelet Count 305 K/mm3 (142-424); White Blood Count 6.4 K/mm3 (4.8-10.8)
[2023-07-31 06:56] LABS: Hemoglobin 10.7 g/dL (12.2-16.2)
--- NOTE | 2023-07-31 10:10 | HMH.OTEV ---
OT Inpatient Evaluation Rehab OT IP Evaluation Start: 07/31/23 09:16 Freq: ONCE Status: Active Protocol: Document 07/31/23 10:04 [facility] (Rec: 07/31/23 10:10 [facility] [id number]) Rehab OT IP Assessment Subjective History Pt oriente x 3 on arrival. Pt agreeable to engage in therapy evaluation. Pt's present and supportive on arrival. Pt was admitted to [facility] on 07/30/23 due to PNA. The patient is a 78-year-old female who returns to [facility] emergency department at the request of her PCP for ongoing cough and weakness. She was recently evaluated in the ED and diagnosed with pneumonia and dismissed on oral antibiotic therapy. She reports tolerating her antibiotic therapy with no adverse events but reports no improvement. She describes recent sick contacts with her grandson who is 4 years old. Prior to being in the hospital , pt lived with her . Pt claims she was independent with all ADLs and IADLs. Pt did not require any type of AE during functional tranfers or ADLs. Pt also still drove. Pt very active prior to illness. Subjective I could do whatever I needed to do. Objective Patient Orientation Person,Place,Birthday Upper Extremity Gross ROM WFL Bed Mobility bed mobility-scooting,bed mobility - supine/sit,bed mobility - rolling Assist Level Supervision/Stand by Transfer Training Sit/Stand Transfer Assist Level Supervision/Stand by Chair Transfer Ability Supervision/Stand by Chair Transfer Technique Sit to/from Ambulatory Chair Transfer Assistive Devices None Lower Body Dressing Ability Standby Assistance Rehab OT IP prob,goals,plan Problems Date of Evaluation: 07/31/23 Rehab Potential Rehab Potential Innapropriate for Skilled
--- NOTE | 2023-07-31 10:28 | HMH.PTEV ---
Physical Therapy Evaluation Rehab PT IP Evaluation Start: 07/31/23 09:15 Freq: ONCE Status: Active Protocol: Document 07/31/23 10:25 JLUIS (Rec: 07/31/23 10:28 JLUIS [id number]) Subjective/History History History 78 yowf adm to [facility] with PNA. She has PMH of CAD, HTN, OA. She reports she is generally independent with all mobility without AD, independent with all ADLs, and lives with 2-3 steps to enter the home. Subjective Subjective Currently only c/o feeling cold this am. New diagnosis of cancer in past 12 No months? Rehab PT IP Eval Objective Appearance Patient Behavior Appropriate Patient Orientation Person,Place,Time Difficulty following instructions none Speech Pattern Clear Ambulation Patient Able to Ambulate Yes Ambulation Observation IP General Gait Pattern Observation No Deviations/Normal Ambulation Distance (feet) 75 Ambulation Assistive Device None Ambulation Ability Independent Balance Ability to Arise Able, w/o using arms Sitting Balance Steady, safe Standing Balance Steady, wide stance Dynamic Sitting Balance Ability Good Dynamic Standing Balance Ability Good Transfers Bed Transfer Ability Independent Chair Transfer Ability Independent Sit to Stand Bed Transfer Ability Independent Sit to Stand Chair Transfer Ability Independent ROM All Extremities PT ROM Status WFL MMT All Extremities PT MMT WFL Rehab PT IP prob,goals,plan Problems Date of Evaluation: 07/31/23 Discharge Plan PT Discharge Plan Pt is currently appropriate to return home once medically stable for d/c. Eval Complexity Eval Charge Codes 94532 - High Complexity PHYSICIAN CERTIFICATION: I certify the specified therapy services for Jayleen Guzman are required, authorized, and reviewed every 30 days.
[2023-07-31 14:16] LABS: POC Glucose,Bedside 193 (70-110)
--- NOTE | 2023-07-31 14:20 | EXP.PN ---
Subjective *Date: 07/31/23 *Time: 14:25 Interval history: Patient is seen and examined at bedside. I am accompanied by her nurse Yaneth. Nursing staff report that she remains afebrile with stable vital signs and saturating appropriately on room air. Her morning labs identify a corrected magnesium level, sodium level and potassium level. Her echocardiogram identifies an ejection fraction of 55% with RVSP 38 mmHg. She is tolerating her IV antibiotic therapy with no adverse events. She reports some weakness this morning. PT is due to evaluate the patient. Exam Data for Last 24 hours Vital signs and Labs for Last 24 Hours: Temp Pulse Resp BP Pulse Ox O2 Del Method 97.6 F 60 16 117/58 L 98 Room Air 07/31/23 11:01 07/31/23 12:00 07/31/23 11:01 07/31/23 11:01 07/31/23 11:01 07/31/23 13:00 Laboratory Results - last 24 hr 07/30/23 10:12: Hemoglobin A1c 8.1 H 07/30/23 15:25: Lactate 2.4 H, Troponin I < 0.01 07/30/23 16:15: POC Glucose 286 H 07/30/23 17:30: Lactate 2.2 H 07/30/23 20:02: POC Glucose 109 07/31/23 05:28: POC Glucose 141 H 07/31/23 05:41: WBC 6.4, RBC 4.00 L, Hgb 10.7 L D, Hct 31.2 L, MCV 78.0 L, MCH 26.7 L, MCHC 34.2, RDW 13.5, Plt Count 305, MPV 8.2, Neut % (Auto) 72.2, Lymph % (Auto) 20.6, [place] % (Auto) 3.2, Eos % (Auto) 3.3, Baso % (Auto) 0.6, Neut # (Auto) 4.7, Lymph # (Auto) 1.3, [place] # (Auto) 0.2, Eos # (Auto) 0.2, Baso # (Auto) 0.0, Sodium 136, Potassium 4.1 D, Chloride 100, Carbon Dioxide 32 H, Anion Gap 8.1, BUN 16 D, Creatinine 0.60 D, Estimated Creat Clear 39, Estimated GFR 97, Est GFR ( Amer) 117 D, Glucose 144 H D, Calcium 7.7 L, Magnesium 1.8 D 07/31/23 13:53: POC Glucose 193 H I & O for Last 24 hours: Intake & Output 07/28/23 07/29/23 07/30/23 07/31/23 23:59 23:59 23:59 23:59 Intake Total 120 / 240 1561 / 1561 Output Total 0 / 0 0 / 0 Balance 120 / 240 1561 / 1561 Weight 51.029 kg 53.552 kg Constitutional Constitutional: no acute distress, thin and cooperative *Routine HEENT Exam Head: Present normocephalic and atraumatic Eye: Present EOMI and PERRL ENT: Present mucous membranes moist *Routine Neck Exam Neck: Present supple and trachea midline; Absent lymphadenopathy *Routine Respiratory Exam Respiratory: Present rhonchi and symmetric chest movement; Absent respiratory distress *Routine Cardiovascular Exam Cardiovascular: Present RRR, Normal S1 and Normal S2 *Routine Abdominal Exam Abdominal: Present soft and normoactive bowel sounds; Absent tenderness *Routine Extremities Exam Extremities: Present full ROM, pulses intact and normal capillary refill; Absent cyanosis, clubbing or edema *Routine Skin Exam Skin: Present warm; Absent rash *Routine Neurological Exam Neurological: Present alert, oriented X3, moving all extremities, vision grossly intact, hearing grossly intact and normal speech; Absent sensory deficit or motor deficit Routine Psychiatric Exam Psychiatric: Present normal affect, normal thought process, cooperative, good insight and good judgment Assessment and Plan *Assessment and plan (1) Pneumonia: Status: Acute Category: Medical Code(s): J18.9 - Pneumonia, unspecified organism (2) Hyponatremia: Status: Acute Category: Medical Code(s): E87.1 - Hypo-osmolality and hyponatremia (3) Hypomagnesemia: Status: Acute Category: Medical Code(s): E83.42 - Hypomagnesemia (4) Hypokalemia: Status: Acute Category: Medical Code(s): E87.6 - Hypokalemia (5) Diabetes mellitus, type 2: Status: Acute Category: Medical Code(s): E11.9 - Type 2 diabetes mellitus without complications (6) Coronary artery disease: Status: Acute Category: Medical Code(s): I25.10 - Atherosclerotic heart disease of [place] coronary artery without angina pectoris (7) Failure of outpatient treatment: Status: Acute Category: Medical Code(s): Z78
[2023-07-31 17:54] LABS: POC Glucose,Bedside 173 (70-110)
--- NOTE | 2023-07-31 18:18 | PC.NURSE ---
Pt states she doesn't feel good. Has ambulated in the hallway with PT. She has been up to the chair today x2. Has tolerated well. has visited her this morning and evening. Medications administered per dec. VSS. Call light within reach.
[2023-07-31 20:13] LABS: POC Glucose,Bedside 161 (70-110)
[2023-08-01] VITALS: BP 114/53; PULSE 60; PULSE 65; RESP 18; TEMP 37.3; O2SAT 96
[2023-08-01 04:00] VITALS: BP 115/59; PULSE 50; PULSE 54; RESP 18; TEMP 36.4; O2SAT 97; BMI 21.2
--- NOTE | 2023-08-01 05:05 | PC.NURSE ---
Pt AOx4 throughout shift and requiring intermittent doses of PRN pain medication, which she states relieves pain. Pt able to sleep throughout shift and denies any acute needs at this time. Cardiac telemetry remains in place. Denies any SOB, chills, or fevers. No acute needs at this time. Personal belongings and call light within reach.
[2023-08-01 06:09] LABS: POC Glucose,Bedside 140 (70-110)
--- NOTE | 2023-08-01 07:44 | PC.NURSE ---
rounded on pt, updated pts whiteboard, no needs at this time
[2023-08-01 08:00] VITALS: BP 99/50; PULSE 60; PULSE 72; RESP 19; TEMP 36.6; O2SAT 92
--- NOTE | 2023-08-01 09:23 | EXP.DC.SUM ---
General Admission date:: 07/30/23 Discharge date: 08/01/23 HPI HPI HPI: The patient is a 78-year-old female who returns to [facility] emergency department at the request of her PCP for ongoing cough and weakness. She was recently evaluated in the ED and diagnosed with pneumonia and dismissed on oral antibiotic therapy. She reports tolerating her antibiotic therapy with no adverse events but reports no improvement. She describes recent sick contacts with her grandson who is 4 years old. She has identified subjective fever and chills with associated croupy cough. She denies acute dyspnea at rest or hemoptysis. She reports intermittent productive cough. She denies confusion, falls, nausea, vomiting or diarrhea. She denies retrosternal chest pain or palpitations. She reports a decreased appetite with diminished p.o. intake of food and liquids. She is chronically prescribed a thiazide diuretic. In the ED his sodium 132 potassium 3.1 and magnesium 1.5 were noted. A CTA of the chest identified bilateral groundglass opacities consistent with pneumonia. Her COVID test was negative. Hospital Course Hospital Course Hospital Course: The patient was admitted to the medical floor with IV fluid resuscitation. Blood cultures were acquired that identified no growth to date. She was started on broad-spectrum IV antibiotic therapy and tolerated it well. She oxygenated appropriately on room air. Her laboratory studies and inflammatory markers were trended and identified improvement. A microcytic anemia was identified and oral iron therapy is recommended. She will continue with OTC PPI therapy and have further discussions with her PCP concerning endoscopic evaluations. Her electrolyte disturbances resolved including her hyponatremia, hypokalemia and hypomagnesemia. Her thiazide diuretic was held throughout her inpatient stay and we recommended holding until follow-up with her PCP to have further discussions. PT evaluated the patient. The patient identified improvement and inquired about discharge home. She will be discharged home with a short course of p.o. antibiotic therapy. Iron supplement was added to her discharge medications. I spent 35 minutes in [id number] time with the patient and nursing staff concerning the discharge process. We discussed the admitting diagnoses and hospital course. We discussed identified improvement and the patient's desire to be discharged. We reviewed inpatient studies and imaging. The patient voiced understanding on the importance of follow-up with her primary care provider and consideration for outpatient endoscopies. The patient plans to be compliant with the medication regimen prescribed and follow-up appointments. She understands that she can return to the emergency department with any sudden changes or concerns. Exam Data for Last 24 hours Vital signs and Labs for Last 24 Hours: Temp Pulse Resp BP Pulse Ox O2 Del Method 97.9 F 72 19 99/50 L 92 L Room Air 08/01/23 08:00 08/01/23 08:00 08/01/23 08:00 08/01/23 08:00 08/01/23 08:00 08/01/23 09:00 Laboratory Results - last 24 hr 07/31/23 13:53: POC Glucose 193 H 07/31/23 17:17: POC Glucose 173 H 07/31/23 19:40: POC Glucose 161 H 08/01/23 06:01: POC Glucose 140 H I & O for Last 24 hours: Intake & Output 07/29/23 07/30/23 07/31/23 08/01/23 23:59 23:59 23:59 23:59 Intake Total 120 / 240 1801 / 3250 1569 / 1569 Output Total 0 / 0 0 / 0 0 / 0 Balance 120 / 240 1801 / 3250 1569 / 1569 Weight 51.029 kg 53.552 kg 56.331 kg Constitutional Constitutional: no acute distress, thin and cooperative *Routine HEENT Exam Head: Present normocephalic and atraumatic Eye: Present EOMI and PERRL ENT: Present mucous membranes moist *Routine Neck Exam Neck: Present supple and trachea midline; Absent lymphadenopathy *Routine Respiratory Exam Respiratory: Present rhonchi and symmetric chest movement; Absent respiratory distress
[2023-08-01 09:30] VITALS: PULSE 50; RESP 16
--- NOTE | 2023-08-02 16:23 | CARE MANAGER ---
Called and spoke with patient regarding recent discharge. Patient stated she is doing well, started new medication, and has scheduled a f/u appt with Dr. Kong. No concerns voiced at time of call.
== END 2023-08-01 10:39 | disposition home or self-care (01) | DRG 194 ==
LOC: ER 12:46 → 2ND 13:41
PROVIDERS: Admitting Provider Family Medicine; Emergency Provider Student in an Organized Health Care Education/Training Program; PCP Internal Medicine; Visit Provider Family Medicine
DX: J18.9 Pneumonia, unspecified organism (principal); E87.1 Hypo-osmolality and hyponatremia; E86.0 Dehydration; E87.6 Hypokalemia; E83.42 Hypomagnesemia; I25.10 Atherosclerotic heart disease of native coronary artery without angina pectoris; E11.9 Type 2 diabetes mellitus without complications; I10 Essential (primary) hypertension; M19.011 Primary osteoarthritis, right shoulder; D50.9 Iron deficiency anemia, unspecified
CPT/HCPCS: 36415; 71275; 80048; 80053; 81001; 82803; 82962; 83036; 83605; 83735; 84100; 84443; 84484; 85025; 87040; 93005; 93306; 97163; 97165; 99285; J0456; J0696; J3475; Q9967

== ENCOUNTER → 2023-08-16 14:52 | Outpatient (CLI) | payer MEDICARE, OTHER, SELFPAY ==
[2023-08-16 16:12] LABS: Basophils # 0.1 K/mm3 (0-0.2); Basophils % 0.9 % (0.1-2.0); Eosinophils # 0.2 K/mm3 (0.0-0.4); Eosinophils % 2.4 % (0.1-12.0); Hematocrit 38.5 % (37.0-47.0); Hemoglobin 12.7 g/dL (12.2-16.2); Lymphocytes # 1.6 K/mm3 (0.7-4.5); Mean Corpuscular HGB Conc 32.9 g/dL (31.8-35.4); Mean Corpuscular Hemoglobin 27.4 pg (27.0-31.2); Mean Corpuscular Volume 83.3 fl (81-99); Mean Platelet Volume 9.2 fl (7.4-10.4); Monocytes # 0.3 K/mm3 (0.1-1.0); Neutrophils # 5.7 K/mm3 (1.8-7.8); Neutrophils % 72.7 % (37.0-80.0); Platelet Count 376 K/mm3 (142-424); Red Blood Count 4.62 M/mm3 (4.20-5.40); Red Cell Distribution Width 15.8 % (11.5-17.5); White Blood Count 7.8 K/mm3 (4.8-10.8)
[2023-08-16 16:54] LABS: Chloride 102 mmol/L (98-107); Sodium 138 mmol/L (136-145)
[2023-08-16 16:57] LABS: Blood Urea Nitrogen 16 mg/dl (7-17); Carbon Dioxide 25 mmol/L (22.0-30.0); Estimated Glomerular Filt Rate 81 ml/min (>60); GFR (African American) 98 ML/MIN (>60); Glucose 135 mg/dl (74-100); Magnesium 1.8 mg/dl (1.6-2.3)
== END ==
PROVIDERS: PCP Internal Medicine; Visit Provider Internal Medicine
DX: F05 Delirium due to known physiological condition (principal); J18.9 Pneumonia, unspecified organism; R53.83 Other fatigue
CPT/HCPCS: 80048; 83735; 85025

== ENCOUNTER 2024-01-03 13:07 | Outpatient (CLI) | payer MEDICARE, OTHER, SELFPAY ==
[2024-01-03 14:45] LABS: Alanine Aminotransferase 20 U/L (12-78); Albumin Level 4.5 g/dl (3.5-5.0); Alkaline Phosphatase 92 U/L (38-126); Anion Gap 12.9 mEq/L (5-15); Aspartate Amino Transferase 30 U/L (14-36); Bilirubin,Total 0.8 mg/dl (0.2-1.3); Blood Urea Nitrogen 24 mg/dl (7-17); Calcium 9.7 mg/dl (8.4-10.2); Carbon Dioxide 31 mmol/L (22.0-30.0); Chloride 101 mmol/L (98-107); Chol/HDL Ratio 3.9 (1-3.5); Cholesterol 169 mg/dl (140-200); Estimated Glomerular Filt Rate 69 ml/min (>60); GFR (African American) 84 ML/MIN (>60); Globulin 2.3 g/dL (1.3-3.2); Glucose 117 mg/dl (74-100); HDL Cholesterol 43 mg/dl (40-60); Potassium 3.9 mmoL/L (3.5-5.1); Sodium 141 mmol/L (136-145); Total Protein,Serum 6.8 g/dl (6.3-8.2); Triglycerides 154 mg/dl (30-150); VLDL Cholesterol 31 mg/dL (0-40)
[2024-01-03 14:56] LABS: Direct LDL Cholesterol 63.67 mg/dL (100-129)
[2024-01-03 15:33] LABS: Hemoglobin A1C 7.7 % (4.0-6.0)
== END 2024-01-03 23:59 ==
LOC: LAB.DROPOF 13:08
PROVIDERS: PCP Internal Medicine; Visit Provider Internal Medicine
DX: E11.42 Type 2 diabetes mellitus with diabetic polyneuropathy (principal); E11.59 Type 2 diabetes mellitus with other circulatory complications; E78.5 Hyperlipidemia, unspecified; I11.9 Hypertensive heart disease without heart failure; I25.10 Atherosclerotic heart disease of native coronary artery without angina pectoris; M81.0 Age-related osteoporosis without current pathological fracture; Z79.84 Long term (current) use of oral hypoglycemic drugs
CPT/HCPCS: 80053; 80061; 83036

== ENCOUNTER 2024-04-02 14:15 | Outpatient (CLI) | payer MEDICARE, OTHER, SELFPAY ==
[2024-04-02 13:54] LABS: Hemoglobin A1C 7.3 % (4.0-6.0)
[2024-04-02 14:34] LABS: Alanine Aminotransferase 24 U/L (12-78); Albumin Level 4.1 g/dl (3.5-5.0); Albumin/Globulin Ratio 1.6 (1.1-1.8); Alkaline Phosphatase 101 U/L (38-126); Anion Gap 16.5 mEq/L (5-15); Aspartate Amino Transferase 35 U/L (14-36); Bilirubin,Total 0.5 mg/dl (0.2-1.3); Blood Urea Nitrogen 17 mg/dl (7-17); Calcium 9.5 mg/dl (8.4-10.2); Carbon Dioxide 29 mmol/L (22.0-30.0); Chloride 100 mmol/L (98-107); Cholesterol 174 mg/dl (140-200); Estimated Glomerular Filt Rate 60 ml/min (>60); GFR (African American) 73 ML/MIN (>60); Globulin 2.6 g/dL (1.3-3.2); Glucose 121 mg/dl (74-100); HDL Cholesterol 44 mg/dl (40-60); Potassium 4.5 mmoL/L (3.5-5.1); Sodium 141 mmol/L (136-145); Total Protein,Serum 6.7 g/dl (6.3-8.2); Triglycerides 240 mg/dl (30-150); VLDL Cholesterol 48 mg/dL (0-40)
[2024-04-02 14:44] LABS: Direct LDL Cholesterol 69.27 mg/dL (100-129)
== END 2024-04-02 23:59 | disposition home or self-care (01) ==
LOC: LAB.DROPOF 14:16
PROVIDERS: PCP Internal Medicine; Visit Provider Internal Medicine
DX: E78.5 Hyperlipidemia, unspecified (principal); E11.59 Type 2 diabetes mellitus with other circulatory complications; Z79.84 Long term (current) use of oral hypoglycemic drugs
CPT/HCPCS: 80053; 80061; 83036

== ENCOUNTER 2024-04-06 15:18 | Outpatient (CLI) | payer MEDICARE, OTHER, SELFPAY ==
[2024-04-06 18:00] LABS: Creatinine,Urine Random 22 mg/dL (Not Estab.)
[2024-04-06 18:04] LABS: Microalbumin < 6.000 mg/L (0-16.7)
== END 2024-04-06 23:59 | disposition home or self-care (01) ==
LOC: LAB.DROPOF 15:20
PROVIDERS: PCP Internal Medicine; Visit Provider Internal Medicine
DX: E11.59 Type 2 diabetes mellitus with other circulatory complications (principal); Z79.84 Long term (current) use of oral hypoglycemic drugs; Z79.899 Other long term (current) drug therapy
CPT/HCPCS: 82043; 82570

== ENCOUNTER 2024-10-05 11:38 | Outpatient (CLI) | payer MEDICARE, OTHER, SELFPAY ==
[2024-10-05 14:04] LABS: Basophils # 0.1 K/mm3 (0-0.2); Basophils % 1.6 % (0.1-2.0); Eosinophils # 0.3 K/mm3 (0.0-0.4); Eosinophils % 4.8 % (0.1-12.0); Hematocrit 42.2 % (37.0-47.0); Hemoglobin 13.9 g/dL (12.2-16.2); Lymphocytes # 1.8 K/mm3 (0.7-4.5); Lymphocytes % 32.4 % (10-50); Mean Corpuscular HGB Conc 32.9 g/dL (31.8-35.4); Mean Corpuscular Hemoglobin 26.7 pg (27.0-31.2); Mean Corpuscular Volume 81.2 fl (81-99); Mean Platelet Volume 9.1 fl (7.4-10.4); Monocytes # 0.3 K/mm3 (0.1-1.0); Neutrophils # 3.1 K/mm3 (1.8-7.8); Neutrophils % 56.1 % (37.0-80.0); Platelet Count 251 K/mm3 (142-424); Red Cell Distribution Width 13.8 % (11.5-17.5); White Blood Count 5.6 K/mm3 (4.8-10.8)
[2024-10-05 14:32] LABS: Albumin Level 4.3 g/dl (3.5-5.0); Chloride 101 mmol/L (98-107); Potassium 4.7 mmoL/L (3.5-5.1); Sodium 133 mmol/L (136-145)
[2024-10-05 14:34] LABS: Blood Urea Nitrogen 16 mg/dl (7-17); Estimated Glomerular Filt Rate 69 ml/min (>60); GFR (African American) 84 ML/MIN (>60)
[2024-10-05 14:35] LABS: Alanine Aminotransferase 21 U/L (12-78); Alkaline Phosphatase 88 U/L (38-126); Anion Gap 6.7 mEq/L (5-15); Aspartate Amino Transferase 32 U/L (14-36); Bilirubin,Total 0.7 mg/dl (0.2-1.3); Calcium 9.6 mg/dl (8.4-10.2); Carbon Dioxide 30 mmol/L (22.0-30.0); Chol/HDL Ratio 3.6 (1-3.5); Cholesterol 164 mg/dl (140-200); Globulin 2.1 g/dL (1.3-3.2); Glucose 138 mg/dl (74-100); HDL Cholesterol 46 mg/dl (40-60); Total Protein,Serum 6.4 g/dl (6.3-8.2); Triglycerides 177 mg/dl (30-150); VLDL Cholesterol 35 mg/dL (0-40)
[2024-10-05 14:46] LABS: Direct LDL Cholesterol 67.97 mg/dL (100-129)
[2024-10-05 17:58] LABS: Hemoglobin A1C 7.8 % (4.0-6.0)
== END 2024-10-05 23:59 | disposition home or self-care (01) ==
LOC: LAB.DROPOF 10-06 11:39
PROVIDERS: PCP Internal Medicine; Visit Provider Internal Medicine
DX: E11.59 Type 2 diabetes mellitus with other circulatory complications (principal); I10 Essential (primary) hypertension; E78.5 Hyperlipidemia, unspecified; I25.10 Atherosclerotic heart disease of native coronary artery without angina pectoris
CPT/HCPCS: 80053; 80061; 83036; 85025

== ENCOUNTER 2025-04-08 08:46 | Outpatient (CLI) | payer MEDICARE, OTHER, SELFPAY ==
[2025-04-08 14:08] LABS: Albumin Level 4.6 g/dl (3.5-5.0); Chloride 102 mmol/L (98-107); Potassium 4.8 mmoL/L (3.5-5.1); Sodium 140 mmol/L (136-145)
[2025-04-08 14:11] LABS: Alanine Aminotransferase 20 U/L (12-78); Albumin/Globulin Ratio 1.9 (1.1-1.8); Alkaline Phosphatase 89 U/L (38-126); Anion Gap 10.8 mEq/L (5-15); Aspartate Amino Transferase 29 U/L (14-36); Bilirubin,Total 0.9 mg/dl (0.2-1.3); Blood Urea Nitrogen 20 mg/dl (7-17); Calcium 9.8 mg/dl (8.4-10.2); Carbon Dioxide 32 mmol/L (22.0-30.0); Chol/HDL Ratio 4.6 (1-3.5); Cholesterol 198 mg/dl (140-200); Estimated Glomerular Filt Rate 69 ml/min (>60); GFR (African American) 84 ML/MIN (>60); Globulin 2.4 g/dL (1.3-3.2); Glucose 109 mg/dl (74-100); HDL Cholesterol 43 mg/dl (40-60); Triglycerides 299 mg/dl (30-150); VLDL Cholesterol 60 mg/dL (0-40)
[2025-04-08 14:15] LABS: Hemoglobin A1C 7.2 % (4.0-6.0)
[2025-04-08 14:26] LABS: Direct LDL Cholesterol 52.66 mg/dL (100-129)
== END 2025-04-08 23:59 | disposition home or self-care (01) ==
LOC: LAB.DROPOF 04-12 08:48
PROVIDERS: PCP Internal Medicine; Visit Provider Internal Medicine
DX: E78.5 Hyperlipidemia, unspecified (principal); E11.59 Type 2 diabetes mellitus with other circulatory complications
CPT/HCPCS: 80053; 80061; 83036

== ENCOUNTER 2025-04-09 11:15 | Outpatient (CLI) | payer MEDICARE, OTHER, SELFPAY ==
[2025-04-09 14:20] LABS: Creatinine,Urine Random 90 mg/dL (Not Estab.); Microalbumin < 6.000 mg/L (0-16.7)
== END 2025-04-09 23:59 | disposition home or self-care (01) ==
LOC: LAB.DROPOF 04-12 12:24
PROVIDERS: PCP Internal Medicine; Visit Provider Internal Medicine
DX: E11.59 Type 2 diabetes mellitus with other circulatory complications (principal)
CPT/HCPCS: 82043; 82570